=== PATIENT | male | born 1995 | race Caucasian/White ===

== ENCOUNTER 2020-06-14 08:41 | Emergency (ER) | payer SELFPAY ==
--- OUTSIDE RECORDS SUMMARY | 2020-06-14 09:18 | XMS REPORT | Clinical Summary ---
:1995 Author Organization [facility] Address [address] [place] [address] Care Team Providers Name Role Phone MD Angy Primary Care Provider Allergies Active Allergy Reactions Severity Noted Date Comments Cefaclor 04/12/2016 Medications Medication Sig Dispensed Refills Start Date End Date Status acetaminophen (TYLENOL) Take 325 mg by 0 Active 325 MG tablet mouth every 6 (six) hours as needed for fever. terbinafine HCl 0 01/24/2017 Act kayla (LamiSIL) 250 mg tablet traMADol (ULTRAM) 50 mg Take 100 mg by 0 Active tablet mouth daily. diclofenac (VOLTAREN) TAKE 1 TABLET 60 tablet 2 02/25/2017 Active 75 MG EC tablet (75 MG TOTAL) BY MOUTH 2 (TWO) TIMES A DAY. omeprazole (PriLOSEC) TAKE ONE (1) 30 capsule 3 11/18/2017 Active 40 MG capsule CAPSULE(S) BY MOUTH ONCE A DAY. Active Problems Problem Noted Date GERD (gastroesophageal reflux disease) 04/12/2016 Psoriasis 04/12/2016 Psoriatic arthritis 04/12/2016 Influenza declined 04/12/2016 Bilateral dry eyes H/O heartburn Indigestion Joint pain Swelling Nail problem Frequent headaches Psoriasis Immunizations Name Administration Dates Next Due PPD Test 12/06/2014 Family History Medical History Relation Name Comments Diabetes Father Thyroid disease Father Diabetes Maternal Grandfather Thyroid disease Maternal Grandmother Relation Name Status Comments Father Maternal Grandfather Maternal Grandmother Social History Tobacco Use Types Packs/Day Years Used Date Former Smoker Cigarettes Quit: 02/2016 Smokeless Tobacco: Current User Chew Alcohol Use Drinks/Week oz/Week Comments No not found Sex Assigned at Date Recorded Not on file Job Start Date Occupation Industry Not on file Not on file Not on file Travel History Travel Start Travel End No recent travel history available. Last Filed Vital Signs Not on file Plan of Treatment Health Maintenance Due Date Last Done Comments INFLUENZA VACCINE 07/21/2020 Results Not on fileafter 06/14/2019 [phone] [id number] (Work) Advance Directives For more information, please contact: [phone] Type Date Recorded Patient Receptionist Telephone Operator Explanati on Advance Directives, Living Will and Medical Power of Tower Foreman
--- NOTE | 2020-06-14 09:45 | ER ---
Nurse's Notes [facility] Name: Melchor Romo Age: 25 yrs Sex: Male : 1995 Arrival Date: 06/14/2020 Time: 08:44 Bed 19 Private MD: Diagnosis: Pain in right lower leg Presentation: 06/14 09:01 Chief complaint: Patient states: R leg swelling x 3 days and pain x 6 days. PT reports ss he was seen by his poultry raiser yesterday who gave him steroids injections and told him to go to ER to be evaluated for possible DVT. Pt reports that his pain and swelling are almost resolved completely. Coronavirus screen: Client denies travel out of the [place] in the last 14 days. At this time, the client does not indicate any symptoms associated with coronavirus-19. Ebola Screen: Patient denies exposure to infectious person. Patient denies travel to an Ebola-affected area in the 21 days before illness onset. Initial Sepsis Screen: Does the patient meet any 2 criteria? No. Patient's initial sepsis screen is negative. Does the patient have a suspected source of infection? No. Patient's initial sepsis screen is negative. Risk Assessment: Do you want to hurt yourself or someone else? Patient reports no desire to harm self or others. Onset of symptoms was June 08, 2020. 09:01 Method Of Arrival: Ambulatory ss 09:01 Acuity: BIBIANA 3 ss Historical: - Allergies: 09:05 Ceclor; ss - Home Meds: 09:05 Omeprazole Oral [Active]; Tramadol Oral [Active]; ss - PMHx: 09:05 psoriatic arthritis; ss - PSHx: 09:05 Hernia repair; ss - Immunization history:: Adult Immunizations up to date. - Social history:: Smoking status: Patient reports use of chewing tobacco. Screenin:16 Abuse screen: Denies threats or abuse. Denies injuries from another. Nutritional sv screening: No deficits noted. Tuberculosis screening: No symptoms or risk factors identified. Fall Risk None identified. Assessment: 09:28 General: Appears in no apparent distress. comfortable, obese, well groomed, well sv developed, Behavior is calm, cooperative, appropriate for age. Pain: Complains of pain in right leg Pain currently is 2 out of 10 on a pain scale. Neuro: Level of Consciousness is awake, alert, obeys commands, Oriented to person, place, time, situation, Moves all extremities. Full function Gait is steady. Cardiovascular: Patient's skin is warm and dry. Edema is 1+ to right knee, right midcalf and right ankle. Respiratory: Airway is patent Respiratory effort is even, unlabored, Respiratory pattern is regular, symmetrical. Derm: Skin is pink, warm \T\ dry. Musculoskeletal: Range of motion: intact in all extremities. 09:29 Reassessment: US at the bedside. sv 10:12 Reassessment: Patient appears in no apparent distress at this time. No changes from sv previously documented assessment. Patient and/or family updated on plan of care and expected duration. Pain level reassessed. Patient is alert, oriented x 3, equal unlabored respirations, skin warm/dry/pink. Vital Signs: 09:01 BP 121 / 78; Pulse 72; Resp 16; Temp 98.2(O); Pulse Ox 98% on R/A; Weight 127.01 kg; ss Height 5 ft. 11 in. (180.34 cm); Pain 2/10; 09:01 Body Mass Index 39.05 (127.01 kg, 180.34 cm) ED Course: 08:44 Patient arrived in ED. mr 08:59 Boni Cleary MD is Attending Physician. josefina 09:03 Triage completed. ss 09:05 Arm band placed on left wrist. ss 09:08 Casie Chapa, RN is Primary Nurse. sv 09:15 Awaiting ED provider evaluation. sv 09:16 Patient has correct armband on for positive identification. Bed in low position. Call sv light in reach. Door closed. Head of bed elevated. 09:27 ED physician to see patient. sv 09:44 Extremity Venous W Compression Alec In Process Unspecified. EDMS 09:45 Rudi Warner MD is Referral Physician. josefina 10:12 No provider procedures requiring assistance completed. Patient did not have IV access sv during this emergency room visit. Administered Medications: No medications were administered Outcome: 09:45 Discharge ordered by . josefina 10:13 Discharged to home ambulatory. sv 10:13 Condition: good 10:13 Discharge instructions given to patient, Instructed on discharge instructions, follow up and referral plans. medication usage, Demonstrated understanding of instructions, follow-up care, medications, Prescriptions given X 1. 10:13 Patient left the ED. sv Signatures: Dispatcher [employer] Casie Aguilera RN RN sv Anderson, Corey, MD MD [facility] Cami Coffey, DILCIA HA ss
--- NOTE | 2020-06-14 09:45 | EDPHYS ---
Physician Documentation [facility] Name: Melchor Romo Age: 25 yrs Sex: Male : 1995 Arrival Date: 06/14/2020 Time: 08:44 Bed 19 Private MD: ED Physician Boni Cleary HPI: 06/14 09:37 This 25 yrs old Male presents to ER via Ambulatory with complaints of josefina Possible Blood clot. 09:37 The patient presents with pain, swelling, tenderness. The complaints affect the lateral josefina aspect of right thigh, lateral aspect of right knee, lateral aspect of right calf, right quadriceps, right knee and right giron. Context: The problem was sustained at an unknown site, resulted from twisting of the extremity, an unknown cause. Onset: The symptoms/episode began/occurred at an unknown time. Modifying factors: The symptoms are alleviated by elevating leg, remaining still. Associated signs and symptoms: The patient has no apparent associated signs or symptoms. Treatment prior to arrival includes: no previous treatment. Severity of symptoms: At their worst the symptoms were mild, in the emergency department the symptoms are unchanged. The patient has not experienced similar symptoms in the past. Historical: - Allergies: 09:05 Ceclor; ss - Home Meds: 09:05 Omeprazole Oral [Active]; Tramadol Oral [Active]; ss - PMHx: 09:05 psoriatic arthritis; ss - PSHx: 09:05 Hernia repair; ss - Immunization history:: Adult Immunizations up to date. - Social history:: Smoking status: Patient reports use of chewing tobacco. ROS: 09:37 Constitutional: Negative for fever, chills, and weight loss, Eyes: Negative for injury, josefina pain, redness, and discharge, ENT: Negative for injury, pain, and discharge, Neck: Negative for injury, pain, and swelling, Cardiovascular: Negative for chest pain, palpitations, and edema, Respiratory: Negative for shortness of breath, cough, wheezing, and pleuritic chest pain, Abdomen/GI: Negative for abdominal pain, nausea, vomiting, diarrhea, and constipation, Back: Negative for injury and pain, : Negative for injury, bleeding, discharge, and swelling, Skin: Negative for injury, rash, and discoloration, Neuro: Negative for headache, weakness, numbness, tingling, and seizure, Psych: Negative for depression, anxiety, suicide ideation, homicidal ideation, and hallucinations, Allergy/Immunology: Negative for hives, rash, and allergies, Endocrine: Negative for neck swelling, polydipsia, polyuria, polyphagia, and marked weight changes, Hematologic/Lymphatic: Negative for swollen nodes, abnormal bleeding, and unusual bruising. 09:37 MS/extremity: Positive for decreased range of motion, pain, swelling, of the posterior aspect of right knee. 09:46 Cardiovascular: Negative for chest pain. josefina 09:46 Respiratory: Negative for shortness of breath. Exam: 09:37 Constitutional: This is a well developed, well nourished patient who is awake, alert, josefina and in no acute distress. Head/Face: Normocephalic, atraumatic. Eyes: Pupils equal round and reactive to light, extra-ocular motions intact. Lids and lashes normal. Conjunctiva and sclera are non-icteric and not injected. Cornea within normal limits. Periorbital areas with no swelling, redness, or edema. ENT: Nares patent. No nasal discharge, no septal abnormalities noted. Tympanic membranes are normal and external auditory canals are clear. Oropharynx with no redness, swelling, or masses, exudates, or evidence of obstruction, uvula midline. Mucous membranes moist. Neck: Trachea midline, no thyromegaly or masses palpated, and no cervical lymphadenopathy. Supple, full range of motion without nuchal rigidity, or vertebral point tenderness. No Meningismus. Chest/axilla: Normal chest wall appearance and motion. Nontender with no deformity. No lesions are appreciated. Cardiovascular: Regular rate and rhythm with a normal S1 and S2. No gallops, murmurs, or rubs. Normal PMI, no JVD. No pulse deficits. Respiratory: Lungs have equal breath sounds bilaterally, clear to auscultation and percussion. No rales, rhonchi or wheezes noted. No increased work of breathing, no retractions or nasal flaring. Abdomen/GI: Soft, non-tender, with normal bowel sounds. No distension or tympany. No guarding or rebound. No evidence of tenderness throughout. Back: No spinal tenderness. No costovertebral tenderness. Full range of motion. Male : Normal genitalia with no discharge or lesions. Skin: Warm, dry with normal turgor. Normal color with no rashes, no lesions, and no evidence of cellulitis. Neuro: Awake and alert, GCS 15, oriented to person, place, time, and situation. Cranial nerves II-XII grossly intact. Motor strength 5/5 in all extremities. Sensory grossly intact. Cerebellar exam normal. Normal gait. Psych: Awake, alert, with orientation to person, place and time. Behavior, mood, and affect are within normal limits. 09:37 Musculoskeletal/extremity: Extremities: noted in the posterior aspect of right knee: pain, ROM: full active range of motion, full passive range of motion, Circulation is intact in all extremities. Sensation intact. Compartment Syndrome exam of affected extremity: is normal. Joints: All joints appear normal with full range of motion. Weight bearing: able to fully bear weight, DVT Exam: negative Homans' sign noted on exam, no appreciated bluish discoloration, no erythema, no increased warmth, pain, swelling, tenderness. Vital Signs: 09:01 BP 121 / 78; Pulse 72; Resp 16; Temp 98.2(O); Pulse Ox 98% on R/A; Weight 127.01 kg; ss Height 5 ft. 11 in. (180.34 cm); Pain 2/10; 09:01 Body Mass Index 39.05 (127.01 kg, 180.34 cm) ss MDM: 09:17 Patient medically screened. [facility] 09:43 Differential diagnosis: contusion, tendonitis. Data reviewed: vital signs, nurses josefina notes, radiologic studies, doppler. Data interpreted: maintenance of way foreman: not applicable for this patient encounter. rate is 72 beats/min, rhythm is regular, Pulse oximetry: on room air is 98 %. Counseling: I had a detailed discussion with the patient and/or guardian regarding: the historical points, exam findings, and any diagnostic results supporting the discharge/admit diagnosis, radiology results, the need for outpatient follow up. ED course: explained findings, follow up , rest elevate as needed . 06/14 09:18 Order name: US Extremity Venous W Compression Alec josefina Administered Medications: No medications were administered Disposition: 06/14/20 09:45 Discharged to Home. Impression: Pain in right lower leg. - Condition is Stable. - Discharge Instructions: Musculoskeletal Pain, RICE for Routine Care of Injuries, RICE for Routine Care of Injuries, [id number], Heat Therapy, Heat Therapy, [id number]. - Prescriptions for Ibuprofen 600 mg Oral Tablet - take 1 tablet by ORAL route every 6 hours As needed take with food; 20 tablet. - Medication Reconciliation Form, Thank You Letter, Antibiotic Education, Prescription Opioid Use form. - Follow up: Private Physician; When: 2 - 3 days; Reason: Recheck today's complaints, Continuance of care, Re-evaluation by your physician. Follow up: Rudi Warner MD; When: 2 - 3 days; Reason: Recheck today's complaints, Re-evaluation by your physician. - Problem is new. - Symptoms have improved. Signatures: Dispatcher [employer] EDCasie Parker RN RN Boni Garcia MD MD cha Smirch, Shelby, RN RN ss Corrections: (The following items were deleted from the chart) 09:45 09:45 06/14/2020 09:45 Discharged to Home. Impression: Pain in right lower leg. josefina Condition is Stable. Forms are Medication Reconciliation Form, Thank You Letter, Antibiotic Education, Prescription Opioid Use. Follow up: Private Physician; When: 2 - 3 days; Reason: Recheck today's complaints, Continuance of care, Re-evaluation by your physician. Problem is new. Symptoms have improved. josefina 10:13 09:45 06/14/2020 09:45 Discharged to Home. Impression: Pain in right lower leg. sv Condition is Stable. Forms are Medication Reconciliation Form, Thank You Letter, Antibiotic Education, Prescription Opioid Use. Follow up: Private Physician; When: 2 - 3 days; Reason: Recheck today's complaints, Continuance of care, Re-evaluation by your physician. Follow up: Rudi Warner; When: 2 - 3 days; Reason: Recheck today's complaints, Re-evaluation by your physician. Problem is new. Symptoms have improved. josefina
--- NOTE | 2020-06-14 09:54 | RAD REPORT ---
EXAM DESCRIPTION: USExtrem Venous W Compress Bil06/14/2020 9:45 am CLINICAL HISTORY: Leg swelling COMPARISON: none FINDINGS: The common femoral, superficial femoral, and popliteal veins bilaterally are compressible and demonstrate augmentation. Doppler demonstrates good flow. 4.8 x 1 x 1.2 centimeter fluid collection right popliteal fossa IMPRESSION: No evidence of deep venous thrombosis involving either lower extremity. 4.8 x 1 x 1.2 centimeter fluid collection right popliteal fossa may represent a Patel's cyst or hemat xavier
[2020-06-18 11:37] VITALS: BP 121/78; TEMP 98.2; O2SAT 98
== END 2020-06-14 10:13 | disposition home or self-care (01) ==
LOC: ER 08:41
DX: M79.661 Pain in right lower leg (principal); Z88.1 Allergy status to other antibiotic agents; Z72.0 Tobacco use
CPT/HCPCS: 93970; 99283

== ENCOUNTER 2024-06-20 17:43 | Emergency (ER) | payer OTHER ==
[2024-06-20] MEDS ORDERED: KETOROLAC 30 MG/ML INJ ONE (18:33)
[2024-06-20] MEDS ORDERED: METHOCARBAMOL 1,000 MG/10 ML VIAL ONE (18:33)
[2024-06-20] MEDS ORDERED: NA CHLORIDE 0.9% 100 ML ONE (18:33)
--- NOTE | 2024-06-20 19:03 | RAD REPORT ---
EXAM DESCRIPTION: CT - Stone Protocol - 06/20/2024 6:49 pm CLINICAL HISTORY: Abdominal pain. COMPARISON: None. TECHNIQUE: Computed axial tomography of the abdomen pelvis was obtained without oral or IV contrast. Lack of IV and oral contrast limits evaluation of solid organs, appendix, bowel, and vessels. Barillas l reformatted images were obtained and reviewed. All CT scans are performed using dose optimization technique as appropriate and may include automated exposure control or mA/KV adjustment according to patient size. FINDINGS: A renal calculus is not seen. An ureteral calculus is not noted. A bladder calculus is not present. No hydronephrosis The liver, spleen, pancreas and adrenals appear grossly normal There is no evidence of diverticulitis. The appendix appears normal Small umbilical hernia 8 millimeter right upper lobe nodule is mostly calcified. Spondylolysis L5 IMPRESSION: Negative for a genitourinary calculus 8 millimeter right upper lobe nodule mostly calcified probably a granuloma. It is recommended that pa tient have a followup chest x-ray in 3 months to assess stability
[2024-06-20 19:16] LABS: Specific Gravity 1.022 (1.005-1.030); Sqamous Epithelial None Seen /HPF (None Seen); Urine Bacteria <20 /HPF (<20); Urine Bilirubin NEGATIVE (Negative); Urine Blood Negative (Negative); Urine Clarity Clear (Clear); Urine Color Light-Yellow (Yellow); Urine Culture Reflex Order NOT NEEDED; Urine Glucose NEGATIVE (Negative); Urine Ketones NEGATIVE (Negative); Urine Microscopic Reflex YN ORDER UMIC; Urine Nitrite NEGATIVE (Negative); Urine Protein NEGATIVE (Negative); Urine RBC <5 /HPF (None Seen); Urine Urobilinogen Normal (Normal); Urine WBC None Seen /HPF (<5)
[2024-06-20 19:23] LABS: Absolute Eosinophils 0.3 K/uL (0-0.5); Absolute Lymphocytes (CBC) 3.9 K/uL (0.7-4.9); Absolute Monocytes 1.4 K/uL (0.1-1.3); Absolute Neutrophil 5.5 K/uL (1.8-8.0); Basophils % 0.4 % (0-1.3); Eosinophils % 2.4 % (0-4.4); Hematocrit 42.2 % (39.6-49.0); Hemoglobin 14.2 g/dL (13.6-17.9); Lymphocytes % 34.9 % (15.3-44.8); MCH 31.8 pg (27.0-35.0); MCHC 33.6 g/dL (32.0-36.0); MCV 94.4 fL (80-100); MPV 8.8 fL (7.6-11.3); Monocytes % 12.3 % (3.3-12.3); Platelets 208 thou/uL (152-406); RBC Red Blood Cell Count 4.47 M/uL (4.33-5.43); Red Cell Distribution Width 13.2 % (12.1-15.2)
[2024-06-20 20:11] LABS: Albumin 4.3 g/dL (3.4-5.0); Albumin/Globulin Ratio 1.2 (1.1-1.8); Anion Gap 7.7 mEq/L (5.0-15.0); Bilirubin Total 0.2 mg/dL (0.2-1.0); Globulin 3.7 g/dL (2.3-3.5); Potassium 3.7 mEq/L (3.5-5.1)
--- NOTE | 2024-06-20 20:42 | ER ---
Nurse's Notes [facility] Name: Melchor Romo Age: 29 yrs Sex: Male : 1995 Arrival Date: 06/20/2024 Time: 17:43 Bed 15 Private MD: Diagnosis: Strain of muscle and tendon of unspecified wall of thorax-right flank Presentation: 06/20 18:08 Chief complaint: Patient states: he was getting out of bed, coughed, felt a "pop" and ap3 then started having pain in his right lower back. patient reports the pain as a 5/10 just sitting, but if he coughs or moves the wrong way the pain becomes an 8/10 on the pain scale. Coronavirus screen: At this time, the client does not indicate any symptoms associated with coronavirus-19. Ebola Screen: No symptoms or risks identified at this time. Initial Sepsis Screen: Does the patient meet any 2 criteria? No. Patient's initial sepsis screen is negative. Does the patient have a suspected source of infection? No. Patient's initial sepsis screen is negative. Risk Assessment: Do you want to hurt yourself or someone else? Patient reports no desire to harm self or others. Onset of symptoms was June 20, 2024. 18:08 Method Of Arrival: Ambulatory ap3 18:08 Acuity: BIBIANA 4 ap3 Triage Assessment: 18:10 General: Appears in no apparent distress. Behavior is calm, cooperative, appropriate ap3 for age. Pain: Complains of pain in right low back Pain currently is 5 out of 10 on a pain scale. at worst was 8 out of 10 on a pain scale. Pain began suddenly. Neuro: Level of Consciousness is awake, alert, obeys commands, Oriented to person, place, time, situation, Appropriate for age. Cardiovascular: Patient's skin is warm and dry. Respiratory: Airway is patent Respiratory effort is even, unlabored, Respiratory pattern is regular, symmetrical. Historical: - Allergies: 18:10 Ceclor; ap3 - PMHx: 18:10 Psoriatic Arthritis; ap3 - Immunization history:: Client reports having NOT received the Covid vaccine. Flu vaccine is not up to date. - Infectious Disease History:: Denies. - Social history:: Smoking status: Patient reports the use of cigarette tobacco products, smokes one-half pack cigarettes per day. Screenin:11 [facility] ED Fall Risk Assessment (Adult) History of falling in the last 3 months, ap3 including since admission No falls in past 3 months (0 pts) Confusion or Disorientation No (0 pts) Intoxicated or Sedated No (0 pts) Impaired Gait No (0 pts) Mobility Assist Device Used No (0 pt) Altered Elimination No (0 pt) Score/Fall Risk Level 0 - 2 = Low Risk Oriented to surroundings, Maintained a safe environment, Educated pt \\T\\ family on fall prevention, incl call for assistance when getting out of bed, Assessed \\T\\ reinforced patient's understanding of fall precautions, Hourly rounding (assess needs \\T\\ fall precautionary measures) done, Used ambulatory aids as needed (educated on \\T\\ assisted with), Used gait belt as appropriate. Abuse screen: Denies threats or abuse. Nutritional screening: No deficits noted. Tuberculosis screening: No symptoms or risk factors identified. Assessment: 18:40 Reassessment: Patient appears in no apparent distress at this time. Patient and/or db family updated on plan of care and expected duration. Pain level reassessed. Patient is alert, oriented x 3, equal unlabored respirations, skin warm/dry/pink. General: Appears in no apparent distress. uncomfortable, Behavior is calm, cooperative. Respiratory: Airway is patent Respiratory effort is even, unlabored, Respiratory pattern is regular, symmetrical. 19:38 General: Appears in no apparent distress. Behavior is calm, cooperative, appropriate rg5 for age. Pain: Complains of pain in right low back Pain currently is 2 out of 10 on a pain scale. Quality of pain is described as aching. Neuro: Neuro: Level of Consciousness is awake, alert, obeys commands, Oriented to person, place, time. Cardiovascular: Denies chest pain, shortness of breath. Respiratory: Reports cough that is persistent Airway is patent Respiratory effort is even, unlabored, Respiratory pattern is regular, symmetrical. GI: Abdomen is round non-distended. : No signs and/or symptoms were reported regarding the genitourinary system. EENT: No deficits noted. Derm: Skin is intact, Skin is dry, Skin is normal. Musculoskeletal: Range of motion: intact in all extremities. 20:52 Reassessment: Patient and/or family updated on plan of care and expected duration. Pain rg5 level reassessed. Patient is alert, oriented x 3, equal unlabored respirations, skin warm/dry/pink. Patient states feeling better. Patient states symptoms have improved. Vital Signs: 18:08 BP 142 / 86; Pulse 73; Resp 17; Temp 98.1; Pulse Ox 100% ; Weight 127.01 kg; Height 5 ap3 ft. 11 in. ; Pain 5/10; 19:36 BP 142 / 82; Pulse 75; Resp 17; Temp 98; Pulse Ox 98% on R/A; Pain 4/10; db 18:08 Body Mass Index 39.05 (127.01 kg, 180.34 cm) ap3 18:08 Pain Scale: Adult ap3 19:36 Pain Scale: Adult db [place] Coma Score: 19:38 Eye Response: spontaneous(4). Motor Response: obeys commands(6). Verbal Response: rg5 oriented(5). Total: 15. ED Course: 17:48 Patient arrived in ED. mg5 17:49 Boni Carrillo PA is PHCP. cp 17:49 Dre Cueto MD is Attending Physician. cp 18:10 Triage completed. ap3 18:11 Arm band placed on right wrist. ap3 18:45 Cathy Chavarria, DILCIA is Primary Nurse. db 18:50 CT Stone Protocol In Process Unspecified. EDMS 18:[address]. db 19:00 Initial lab(s) drawn, by me, sent to lab. Inserted saline lock: 20 gauge in right db antecubital area, using aseptic technique. Blood collected. Flushed with 10 mL NS. 19:38 Awaiting lab results. rg5 19:38 Patient has correct armband on for positive identification. Bed in low position. Call rg5 light in reach. Side rails up X 1. 19:38 No provider procedures requiring assistance completed. rg5 20:52 Provided Education on: POST ER CARE. rg5 20:52 IV discontinued, bleeding controlled, No redness/swelling at site. Pressure dressing rg5 applied. Administered Medications: 19:05 Drug: TORadol - Ketorolac IVP 15 mg IVP once Route: IVP; Site: right antecubital; db 19:45 Follow up: Response: No adverse reaction; Pain is decreased rg5 19:09 Drug: Methocarbamol IVPB 1 grams IVPB once over 1 hrs; (mix in NS 100 mL) Route: IVPB; db Infused Over: 1 hrs; Site: right antecubital; 19:44 Follow up: IV Status: Completed infusion; IV Intake: 100ml rg5 20:52 Drug: Lidoderm Topical Patch 5 % (700 mg/patch) 1 patches Topical once; leave on for 12 rg5 hours; cover most painful area; may cut into smaller pieces Route: Topical; Site: affected area; Medication: 19:38 VIS not applicable for this client. rg5 Intake: 19:44 IV: 100ml; Total: 100ml. rg5 Outcome: 20:41 Discharge ordered by MD. cp 20:52 Discharged to home ambulatory, rg5 20:52 Condition: stable 20:52 Discharge instructions given to patient, Instructed on discharge instructions, follow up and referral plans. Demonstrated understanding of instructions, follow-up care, medications, Prescriptions given X 2, 20:54 Patient left the ED. rg5 Signatures: Dispatcher [employer] EDMS Boni Carrillo PA PA cp Prokisch, Amanda, RN RN ap3 Cathy Chavarria RN RN db Gardner, [place] mg5 Luis Mcfarlane RN RN rg5
--- NOTE | 2024-06-20 20:42 | EDPHYS ---
Physician Documentation [facility] Name: Melchor Romo Age: 29 yrs Sex: Male : 1995 Arrival Date: 06/20/2024 Time: 17:43 Bed 15 Private MD: ED Physician Dre Cueto HPI: 06/20 18:25 This 29 yrs old Male presents to ER via Ambulatory with complaints of Flank Pain. cp 18:25 The patient complains of pain in the right flank. cp 18:25 Onset: The symptoms/episode began/occurred today, pain started after feeling pop when cp getting out of bed. pain worse with rotation of trunk. 18:25 Associated signs and symptoms: Pertinent negatives: diarrhea, dizziness, fever, cp headache, hematuria, pain radiating to the lower extremities, vomiting. Severity of pain: in the emergency department the pain is unchanged despite home interventions. Historical: - Allergies: 18:10 Ceclor; ap3 - PMHx: 18:10 Psoriatic Arthritis; ap3 - Immunization history:: Client reports having NOT received the Covid vaccine. Flu vaccine is not up to date. - Infectious Disease History:: Denies. - Social history:: Smoking status: Patient reports the use of cigarette tobacco products, smokes one-half pack cigarettes per day. ROS: 18:30 Eyes: Negative for injury, pain, redness, and discharge, cp 18:30 Constitutional: Negative for body aches, chills, fever, poor PO intake, 18:30 Neck: Negative for pain with movement, pain at rest, stiffness, 18:30 Cardiovascular: Negative for chest pain, palpitations, 18:30 Respiratory: Negative for cough, shortness of breath, wheezing, 18:30 Abdomen/GI: Negative for vomiting, diarrhea, constipation, 18:30 : Positive for right flank pain, Negative for injury or acute deformity, urinary symptoms, hematuria, testicular pain 18:30 Neuro: Negative for altered mental status, dizziness, headache, weakness, 18:30 All other systems are negative, Exam: 18:35 Constitutional: The patient appears in no acute distress, alert, awake, cp non-diaphoretic, non-toxic, well developed, well nourished, obese, 18:35 Head/Face: Normocephalic, atraumatic. cp 18:35 Eyes: Periorbital structures: appear normal, Conjunctiva: normal, no exudate, no injection, Sclera: no appreciated abnormality, Lids and lashes: appear normal, bilaterally, 18:35 ENT: External ear(s): are unremarkable, Nose: is normal, Mouth: Lips: moist, Oral mucosa: pink and intact, moist, Posterior pharynx: Airway: no evidence of obstruction, patent, 18:35 Neck: ROM/movement: is normal, is supple, without pain, no range of motions limitations, 18:35 Chest/axilla: Inspection: normal, 18:35 Cardiovascular: Rate: normal, Rhythm: regular, Edema: is not appreciated, 18:35 Respiratory: the patient does not display signs of respiratory distress, Respirations: normal, no use of accessory muscles, no retractions, labored breathing, is not present, Breath sounds: are clear throughout, no decreased breath sounds, no stridor, no wheezing, 18:35 Abdomen/GI: Inspection: abdomen appears normal, Bowel sounds: active, all quadrants, Palpation: mild abdominal tenderness, in the anterior aspect of right lateral abdomen and posterior aspect of right lateral abdomen, rebound tenderness, is not appreciated, involuntary guarding, is not appreciated, 18:35 : CVA tenderness, is absent, 18:35 Skin: cellulitis, is not appreciated, no rash present. 18:35 Neuro: Motor: moves all fours, no focal deficits, Gait: is steady, Vital Signs: 18:08 BP 142 / 86; Pulse 73; Resp 17; Temp 98.1; Pulse Ox 100% ; Weight 127.01 kg; Height 5 ap3 ft. 11 in. ; Pain 5/10; 19:36 BP 142 / 82; Pulse 75; Resp 17; Temp 98; Pulse Ox 98% on R/A; Pain 4/10; db 18:08 Body Mass Index 39.05 (127.01 kg, 180.34 cm) ap3 18:08 Pain Scale: Adult ap3 19:36 Pain Scale: Adult db Dent Coma Score: 19:38 Eye Response: spontaneous(4). Motor Response: obeys commands(6). Verbal Response: rg5 oriented(5). Total: 15. MDM: 18:28 Patient medically screened. cp 20:40 Data reviewed: vital signs, nurses notes, lab test result(s), radiologic studies, CT cp scan, and as a result, I will discharge patient. 20:40 Differential diagnosis: nephrolithiasis, pyelonephritis, UTI, testicular torsion, cp diverticulitis, pancreatitis. I considered the following discharge prescriptions or medication management in the emergency department Medications were administered in the Emergency Department. See MAR. Counseling: I had a detailed discussion with the patient and/or guardian regarding the historical points, exam findings, and any diagnostic results supporting the discharge/admit diagnosis, lab results, radiology results, to return to the emergency department if symptoms worsen or persist or if there are any questions or concerns that arise at home. 06/20 18:19 Order name: CBC with Diff; Complete Time: 20:33 cp 06/20 20:33 Interpretation: Normal except: WBC 11.10; MNA 1.4. cp 06/20 18:19 Order name: CMP; Complete Time: 20:33 cp 06/20 20:33 Interpretation: Normal except: ALT 62. cp 06/20 18:19 Order name: Lipase; Complete Time: 20:33 cp 06/20 18:19 Order name: Urinalysis w/ reflexes; Complete Time: 20:33 cp 06/20 18:19 Order name: CT Stone Protocol; Complete Time: 19:11 cp 06/20 18:19 Order name: IV Saline Lock; Complete Time: 19:09 cp 06/20 18:19 Order name: Labs collected and sent; Complete Time: 19:09 cp Administered Medications: 19:05 Drug: TORadol - Ketorolac IVP 15 mg IVP once Route: IVP; Site: right antecubital; db 19:45 Follow up: Response: No adverse reaction; Pain is decreased rg5 19:09 Drug: Methocarbamol IVPB 1 grams IVPB once over 1 hrs; (mix in NS 100 mL) Route: IVPB; db Infused Over: 1 hrs; Site: right antecubital; 19:44 Follow up: IV Status: Completed infusion; IV Intake: 100ml rg5 20:52 Drug: Lidoderm Topical Patch 5 % (700 mg/patch) 1 patches Topical once; leave on for 12 rg5 hours; cover most painful area; may cut into smaller pieces Route: Topical; Site: affected area; Disposition Summary: 06/20/24 20:41 Discharge Ordered Notes: Location: Home cp Problem: new cp Symptoms: have improved cp Condition: Stable cp Diagnosis - Strain of muscle and tendon of unspecified wall of thorax - right flank cp Followup: cp - With: Private Physician - When: 2 - 3 days - Reason: Worsening of condition Discharge Instructions: - Discharge Summary Sheet cp - Musculoskeletal Pain cp Forms: - Medication Reconciliation Form cp - Antibiotic Education cp - Prescription Opioid Use cp - Patient Portal Instructions cp - Leadership Thank You Letter cp Prescriptions: - Anaprox DS 550 mg Oral Tablet - take 1 tablet ORAL route every 12 hours As needed; 20 tablet; Refills: 0, cp Product Selection Permitted - methocarbamol 750 mg Oral tablet - take 1 tablet ORAL route 3 times per day; 30 tablet; Refills: 0, Product cp Selection Permitted Addendum: 06/22/2024 09:02 Co-signature as Attending Physician, Dre Cueto MD I reviewed the patient's care r t provided by the Advanced Practice Provider and agree with the diagnosis and treatment plan. Signatures: Dispatcher [employer] EDMS Boni Carrillo PA PA cp Mary Kay Regalado RN RN ap3 Cathy Chavarria RN RN db Dre Cueto MD MD rt Luis Mcfarlane RN RN rg5 Corrections: (The following items were deleted from the chart) 06/21 20:46 20:42 Cardiovascular: Negative for chest pain, palpitations, cp cp 20:46 20:42 Respiratory: Negative for cough, shortness of breath, wheezing, cp cp 20:46 20:42 Abdomen/GI: Negative for vomiting, diarrhea, constipation, cp cp 20:46 20:42 Constitutional: Negative for body aches, chills, fever, poor PO intake, cp cp 20:46 20:42 : Positive for right flank pain, Negative for injury or acute deformity, cp urinary symptoms, hematuria, testicular pain cp 20:46 20:42 Eyes: Negative for injury, pain, redness, and discharge, cp cp 20:46 20:42 Neck: Negative for pain with movement, pain at rest, stiffness, cp cp 20:46 20:42 All other systems are negative, cp cp 20:46 20:42 Neuro: Negative for altered mental status, dizziness, headache, weakness, cp cp
[2024-06-20] MEDS ORDERED: LIDOCAINE 4% PATCH ONE (20:50)
[2024-06-20 21:25] VITALS: BP 142/82; TEMP 98; O2SAT 98
== END 2024-06-20 20:54 | disposition home or self-care (01) ==
LOC: ER 17:43
DX: S29.019A Strain of muscle and tendon of unspecified wall of thorax, initial encounter (principal); F17.210 Nicotine dependence, cigarettes, uncomplicated
CPT/HCPCS: 96365; 85025; 81001; 36415; 83690; 80053; 76377; 74176; 96375; 99285; J2001; J2800